=== PATIENT | female | born 1985 | race Caucasian/White ===

== ENCOUNTER 2017-05-06 16:34 | Emergency (ER) | payer MEDICAID ==
--- NOTE | 2017-05-06 17:38 | ED Physician Documentation ---
History of Present Illness - Stated complaint Stated Complaint: BODY PAIN - Chief complaint Chief Complaint: General - History obtained from History obtained from: Patient - History of Present Illness Timing: Other (32-year-old woman with history of pancreatitis and methamphetamine abuse, she has been absent from the emergency department lately , currently maintained on methadone. She has numerous complaints, she feels like her body is swollen and her organs were shutting down. She wonders if she might have shingles, but she does not have a rash. She has been peeing normally. There is a possibility of . She has been tapering her methadone methadone, was at 135 mg, currently at 70 mg a day, that taper took place over 2 months. She admits to methamphetamine abuse, last 2 days ago.) Review of Systems Constitutional: reports: Chills, Myalgias, Fatigue. denies: Fever Throat: reports: Reviewed and negative Cardiac: reports: Reviewed and negative Respiratory: reports: Reviewed and negative PD PAST MEDICAL HISTORY - Past Medical History Past Medical History: Yes Cardiovascular: None Respiratory: Pneumonia Neuro: Other Endocrine/Autoimmune: Other GI: Pancreatitis : None HEENT: None Psych: Anxiety, Panic attacks Musculoskeletal: None Derm: Eczema - Past Surgical History Past Surgical History: Yes General: Cholecystectomy, Other Ortho: Arthroscopic surgery HEENT: Tonsil/Adenoidectomy - Present Medications Home Medications: Ambulatory Orders Medication Instructions Recorded Confirmed Omeprazole 40 mg PO DAILY 09/17/15 05/06/17 QUEtiapine [SEROquel] 100 mg PO QPM #14 tablet 05/06/17 - Allergies Allergies/Adverse Reactions: Allergies Allergy/AdvReac Type Severity Reaction Status Date / Time morphine Allergy Intermediate Itching Verified 05/31/16 17:32 amoxicillin Allergy Itching Verified 05/31/16 17:32 promethazine HCl * Allergy Unknown Verified 05/31/16 17:32 [From Phenergan] - Social History Does the pt smoke?: Yes Smoking Status: Current every day smoker Does the pt drink ETOH?: Yes Does the pt have substance abuse?: Yes - Immunizations Immunizations are current?: Yes - POLST Patient has POLST: No PD ED PE NORMAL - Vitals Vital signs reviewed: Yes - General General: Alert and oriented X 3, No acute distress - HEENT HEENT: PERRL, EOMI, Pharynx benign - Neck Neck: Supple, no meningeal sign, No bony TTP - Cardiac Cardiac: RRR, No murmur - Respiratory Respiratory: No respiratory distress, Clear bilaterally - Abdomen Abdomen: Soft, Non tender - Derm Derm: Normal color, Warm and dry - Extremities Extremities: No edema, No calf tenderness / cord - Neuro Neuro: No motor deficit, No sensory deficit, Normal speech Eye Opening: Spontaneous Motor: Obeys Commands Verbal: Oriented GCS Score: 15 - Psych Psych: Normal mood, Normal affect Results - Vitals Vitals: Vital Signs - 24 hr 05/06/17 05/06/17 05/06/17 16:58 18:07 18:47 Temperature 36.5 C 36.8 C 36.8 C Heart Rate 102 H 93 104 H Respiratory 20 16 18 Rate Blood Pressure 121/85 H 156/103 H 136/86 H O2 Saturation 98 97 97 Oxygen O2 Source Room air - Labs Labs: Laboratory Tests 05/06/17 05/06/17 18:00 18:00 Urine Color YELLOW Urine Clarity HAZY Urine pH 6.0 Ur Specific [place] >=1.030 H Urine Protein NEGATIVE Urine Glucose (UA) NEGATIVE Urine Ketones NEGATIVE Urine Occult Blood MODERATE H Urine Nitrite NEGATIVE Urine Bilirubin NEGATIVE Urine Urobilinogen 0.2 (NORMAL) Ur Leukocyte Esterase NEGATIVE Urine RBC 0-5 Urine WBC 0-3 Ur Squamous Epith Cells MANY Squamous H Urine Bacteria Many H Urine Mucus Marked Strands Ur Microscopic Review INDICATED Urine Culture Comments NOT INDICATED Urine HCG, Qual NEGATIVE Urine Opiates Screen NEGATIVE Ur Oxycodone Screen NEGATIVE Urine Methadone Screen POSITIVE H Ur Propoxyphene Screen NEGATIVE Ur Barbiturates Screen NEGATIVE Ur Tricyclics Screen NEGATIVE Ur Phencyclidine Scrn NEGATIVE Ur Amphetamine Screen POSITIVE H U Methamphetamines Scrn POSITIVE H U Benzodiazepines Scrn NEGATIVE Urine Cocaine Screen NEGATIVE U Cannabinoids Screen NEGATIVE PD MEDICAL DECISION MAKING - ED course ED course: 32-year-old woman with vague nonspecific symptoms not well localizable to any one issue. Her examination was normal. She declined having blood work done, but I suspect most of her issues are related to the methamphetamine abuse. Departure - Departure Disposition: 01 Home, Self Care Clinical Impression: Viral syndrome, Methamphetamine abuse Condition: Good Record reviewed to determine appropriate education?: Yes Follow-Up: [facility] [Provider Group] Prescriptions: QUEtiapine [SEROquel] 100 mg PO QPM #14 tablet Comments: Your blood pressure was elevated today on check into the emergency department. This does not mean that you have hypertension, it is a common phenomenon to come to the emergency department and have elevated blood pressure. I recommend that you see your primary care physician within the week to have it rechecked when you are feeling better. Discharge Date/Time: 05/06/17 18:52
[2017-05-06 18:11] LABS: BILIRUBIN,URINE NEGATIVE (NEGATIVE)
[2017-05-06 18:13] LABS: HCG UR QUAL NEGATIVE; UA w/ MICROSCOPIC CHARGE YES
[2017-05-06 18:34] LABS: UR CULTURE IF IND NOT INDICATED; WBC,URINE 0-3 /HPF (0-5)
[2017-05-06] MEDS ORDERED: QUEtiapine 100 MG TABLET PO STA (18:41)
[2017-05-06 18:48] VITALS: BP 136/86
== END 2017-05-06 18:52 | disposition home or self-care (01) ==
LOC: ED 16:34
DX: B34.9 Viral infection, unspecified (principal); F15.10 Other stimulant abuse, uncomplicated; R03.0 Elevated blood-pressure reading, without diagnosis of hypertension; F17.200 Nicotine dependence, unspecified, uncomplicated; Z86.39 Personal history of other endocrine, nutritional and metabolic disease
CPT/HCPCS: 80306; 81001; 81025; 99283; A9270; 81003; 87086

== ENCOUNTER 2017-08-06 16:42 | Emergency (ER) | payer MEDICAID ==
--- NOTE | 2017-08-06 17:56 | ED Physician Documentation ---
PD HPI NVD - Stated complaint Stated Complaint: NAUSEA/ABD PX/FEVER - Chief complaint Chief Complaint: Abd Pain - History obtained from History obtained from: Patient - History of Present Illness Timing - onset: How many days ago (2-3) Timing - duration: Days (2-3) Timing - details: Gradual onset, Still present Associated symptoms: Abdominal pain, Dizzy. No: Dysuria Contributing factors: Other (she is on quick tapering of methadone over 1 month (was at 45 mg daily and is half way through taper).). No: Sick contact, Bad food, Travel Worsened by: Eating Similar symptoms before: Diagnosis (has had symptoms with withdrawal in the past , but usually not the malaise and as much diarrhea.) Recently seen: Clinic Review of Systems Constitutional: reports: Chills, Myalgias, Fatigue. denies: Fever Nose: denies: Congestion Throat: denies: Sore throat Respiratory: denies: Cough GI: reports: Abdominal Pain, Nausea, Vomiting, Diarrhea. denies: Abdominal Swelling, Bloody / black stool : denies: Dysuria Skin: denies: Rash, Lesions PD PAST MEDICAL HISTORY - Past Medical History Cardiovascular: None Respiratory: Pneumonia Neuro: Other Endocrine/Autoimmune: Other GI: Pancreatitis : None HEENT: None Psych: Anxiety, Panic attacks Musculoskeletal: None Derm: Eczema - Past Surgical History Past Surgical History: Yes General: Cholecystectomy, Other Ortho: Arthroscopic surgery HEENT: Tonsil/Adenoidectomy - Present Medications Home Medications: Ambulatory Orders Medication Instructions Recorded Confirmed Omeprazole 40 mg PO DAILY 09/17/15 05/06/17 QUEtiapine [SEROquel] 100 mg PO QPM #14 tablet 05/06/17 Dicyclomine [Bentyl] 10 mg PO QID PRN #20 capsule 08/06/17 Methadone 30 mg PO 08/06/17 Ondansetron HCl [Zofran] 4 mg PO Q6H PRN #20 tablet 08/06/17 QUEtiapine [SEROquel] 100 mg PO QPM #20 tablet 08/06/17 cloNIDine [Catapres] 0.1 mg PO BID #15 tablet 08/06/17 - Allergies Allergies/Adverse Reactions: Allergies Allergy/AdvReac Type Severity Reaction Status Date / Time amoxicillin Allergy Itching Verified 08/06/17 16:50 promethazine HCl * Allergy Unknown Verified 08/06/17 16:50 [From Phenergan] - Social History Does the pt smoke?: Yes Smoking Status: Current every day smoker Does the pt drink ETOH?: Yes Does the pt have substance abuse?: Yes - Immunizations Immunizations are current?: Yes - POLST Patient has POLST: No PD ED PE NORMAL - Vitals Vital signs reviewed: Yes - General General: Alert and oriented X 3, Well developed/nourished - HEENT HEENT: Pharynx benign - Neck Neck: Supple, no meningeal sign, No adenopathy - Cardiac Cardiac: RRR (tachycardic), No murmur - Respiratory Respiratory: Clear bilaterally - Abdomen Abdomen: Soft, Non tender - Back Back: No CVA TTP - Derm Derm: Normal color, Warm and dry - Neuro Neuro: Alert and oriented X 3, No motor deficit, Normal speech Results - Vitals Vitals: Oxygen O2 Source Room air PD MEDICAL DECISION MAKING - ED course Complexity details: considered differential (could be viral illness and/or methadone withdrawal. ), d/w patient Departure - Departure Disposition: 01 Home, Self Care Clinical Impression: Nausea, Abdominal cramps, Methadone withdrawal Upper respiratory infection Qualifiers: URI type: unspecified URI Qualified Code(s): J06.9 - Acute upper respiratory infection, unspecified Condition: Stable Record reviewed to determine appropriate education?: Yes Prescriptions: cloNIDine [Catapres] 0.1 mg PO BID #15 tablet Dicyclomine [Bentyl] 10 mg PO QID PRN #20 capsule PRN Reason: Spasms Ondansetron HCl [Zofran] 4 mg PO Q6H PRN #20 tablet PRN Reason: Nausea / Vomiting QUEtiapine [SEROquel] 100 mg PO QPM #20 tablet Comments: Drink lots of fluids. Continue the methadone tapering through the clinic. Use ondansetron if needed for nausea. Dicyclomine for abdominal cramps. Clonidine twice a day for the next week or 2 to help her withdrawal. This may also be a viral illness and so we will treat with Decadron for inflammation. Follow-up with your primary care in the next week. Use the Seroquel at night to help with sleep. Discharge Date/Time: 08/06/17 19:35
[2017-08-06] MEDS ORDERED: DICYCLOMINE 10 MG CAPSULE PO STA (18:38)
[2017-08-06] MEDS ORDERED: LORazepam 0.5 MG TABLET PO STA (18:38)
[2017-08-06] MEDS ORDERED: ONDANSETRON ODT 4 MG TABLET TL STA (18:38)
[2017-08-06] MEDS ORDERED: DEXAMETHASONE 10 MG/ML VIAL PO STA (18:39)
[2017-08-06] MEDS ORDERED: cloNIDine 0.1 MG TABLET PO STA (18:39)
[2017-08-06] MEDS ORDERED: QUEtiapine 100 MG TABLET PO STA (18:49)
[2017-08-06 19:39] VITALS: BP 149/110
== END 2017-08-06 19:35 | disposition home or self-care (01) ==
LOC: ED 16:42
DX: R11.0 Nausea (principal); R10.9 Unspecified abdominal pain; F11.23 Opioid dependence with withdrawal; F17.200 Nicotine dependence, unspecified, uncomplicated
CPT/HCPCS: 99283; A9270; Q0162

== ENCOUNTER 2023-01-24 08:04 | Outpatient (CLI) | payer MEDICAID | END 2023-01-24 08:05 | disposition critical access hospital (66) | LOC: EMS 08:04 | DX: Z04.6 Encounter for general psychiatric examination, requested by authority (principal); R41.82 Altered mental status, unspecified; F15.90 Other stimulant use, unspecified, uncomplicated | CPT/HCPCS: A0425; A0429; A0999 ==

== ENCOUNTER 2023-01-24 08:20 | Emergency (ER) | payer MEDICAID ==
[2023-01-24] MEDS ORDERED: OLANZapine 10 MG VIAL IM STA (08:26)
[2023-01-24] MEDS ORDERED: SODIUM CHLORIDE 0.9% 1,000 ML IV STA (08:26)
--- NOTE | 2023-01-24 08:30 | ED Physician Documentation ---
PD HPI MHE - Stated complaint Stated Complaint: GABY/IRRATIC BEHAVIOR - History obtained from History obtained from: Patient, EMS, Police - History of Present Illness Primary symptom: Psychosis (Police were called for patient acting erratically and prior learning through cars and campers. She was speaking nonsensically and had erratic behavior for the police. Suspected substance abuse. She admitted to meth apparently. Brought to the ER under GABY.), Other (enroute the patient complained to medics of left lower abd pain and being .) Contributing factors: Substance abuse - drugs (she does use drugs (Meth) by her self report to police/EMS. Not very coherent history from her though, per EMS.) Recently seen: Not recently seen Review of Systems Unable to obtain: AMS, Confused GI: reports: Abdominal Pain (left lower abd.) PD PAST MEDICAL HISTORY - Past Medical History Cardiovascular: None Respiratory: Pneumonia Endocrine/Autoimmune: Other GI: Pancreatitis : None HEENT: None Psych: Anxiety, Panic attacks Musculoskeletal: None Derm: Eczema - Past Surgical History Past Surgical History: Yes General: Cholecystectomy, Other Ortho: Arthroscopic surgery HEENT: Tonsil/Adenoidectomy - Present Medications Home Medications: Ambulatory Orders Medication Instructions Recorded Confirmed Omeprazole 40 mg PO DAILY 09/17/15 05/06/17 QUEtiapine [SEROquel] 100 mg PO QPM #14 tablet 05/06/17 Dicyclomine [Bentyl] 10 mg PO QID PRN #20 capsule 08/06/17 Methadone [Methadone Hcl] 30 mg PO 08/06/17 QUEtiapine [SEROquel] 100 mg PO QPM #20 tablet 08/06/17 cloNIDine [Catapres] 0.1 mg PO BID #15 tablet 08/06/17 ondansetron HCL [Zofran] 4 mg PO Q6H PRN #20 tablet 08/06/17 - Allergies Allergies/Adverse Reactions: Allergies Allergy/AdvReac Type Severity Reaction Status Date / Time amoxicillin Allergy Itching Verified 08/06/17 16:50 promethazine HCl * Allergy Unknown Verified 08/06/17 16:50 [From Phenergan] - Social History Does the pt smoke?: Yes Smoking Status: Current every day smoker Does the pt drink ETOH?: Yes Does the pt have substance abuse?: Yes - Immunizations Immunizations are current?: Yes - POLST Patient has POLST: No PD ED PE NORMAL - Vitals Vital signs reviewed: Yes - General General: Well developed/nourished, Other (confused and anxious. Wide eyed and seems confounded by activity around her. ) - HEENT HEENT: Atraumatic - Neck Neck: Supple, no meningeal sign, No adenopathy - Cardiac Cardiac: No: RRR (tachycardic but regular) - Respiratory Respiratory: No respiratory distress, Clear bilaterally - Abdomen Abdomen: Normal bowel sounds, Soft, Non distended, Other (tender without guarding left lower abd. ) - Female Female : Deferred - Rectal Rectal: Deferred - Back Back: No CVA TTP - Derm Derm: Normal color, Warm and dry Results - Vitals Vitals: Vital Signs - 24 hr 01/24/23 01/24/23 01/24/23 08:23 09:40 16:05 Temperature 36.4 C L 36.7 C Heart Rate 120 H 85 77 Respiratory 22 15 16 Rate Blood Pressure 185/122 H 136/87 H 148/95 H O2 Saturation 94 95 98 Oxygen O2 Source Room air - Labs Labs: Laboratory Tests 01/24/23 01/24/23 01/24/23 09:41 09:41 09:41 WBC 8.3 RBC 4.85 Hgb 13.7 Hct 40.7 MCV 83.9 MCH 28.2 MCHC 33.7 RDW 12.9 Plt Count 236 MPV 9.4 Neut # (Auto) 5.4 Lymph # (Auto) 2.2 Jewell # (Auto) 0.6 Eos # (Auto) 0.1 Baso # (Auto) 0.0 Absolute Nucleated RBC 0.00 Nucleated RBC % 0.0 Sodium 137 Potassium 3.2 L Chloride 105 Carbon Dioxide 26 Anion Gap 6.0 BUN 12 Creatinine 0.7 Estimated GFR (MDRD) 94 Glucose 146 H Calcium 9.4 Total Bilirubin 0.4 AST 19 ALT 13 Alkaline Phosphatase 59 Total Protein 6.7 Albumin 4.1 Globulin 2.6 Albumin/Globulin Ratio 1.6 Lipase 9 L TSH 0.62 Serum HCG, Qual NEGATIVE Urine Color Urine Clarity Urine pH Ur Specific [place] Urine Protein Urine Glucose (UA) Urine Ketones Urine Occult Blood Urine Nitrite Urine Bilirubin Urine Urobilinogen Ur Leukocyte Esterase Ur Microscopic Review Urine Culture Comments Salicylates < 1.5 Urine Opiates Screen Ur Oxycodone Screen Urine Methadone Screen Ur Propoxyphene Screen Acetaminophen 0.4 Ur Barbiturates Screen Ur Tricyclics Screen Ur Phencyclidine Scrn Ur Amphetamine Screen U Methamphetamines Scrn U Benzodiazepines Scrn Urine Cocaine Screen U Cannabinoids Screen Ethyl Alcohol < 10.0 01/24/23 16:45 WBC RBC Hgb Hct MCV MCH MCHC RDW Plt Count MPV Neut # (Auto) Lymph # (Auto) [place] # (Auto) Eos # (Auto) Baso # (Auto) Absolute Nucleated RBC Nucleated RBC % Sodium Potassium Chloride Carbon Dioxide Anion Gap BUN Creatinine Estimated GFR (MDRD) Glucose Calcium Total Bilirubin AST ALT Alkaline Phosphatase Total Protein Albumin Globulin Albumin/Globulin Ratio Lipase TSH Serum HCG, Qual Urine Color YELLOW Urine Clarity CLEAR Urine pH 5.5 Ur Specific [place] 1.025 Urine Protein NEGATIVE Urine Glucose (UA) NEGATIVE Urine Ketones NEGATIVE Urine Occult Blood NEGATIVE Urine Nitrite NEGATIVE Urine Bilirubin NEGATIVE Urine Urobilinogen 0.2 (NORMAL) Ur Leukocyte Esterase NEGATIVE Ur Microscopic Review NOT INDICATED Urine Culture Comments NOT INDICATED Salicylates Urine Opiates Screen NEGATIVE Ur Oxycodone Screen NEGATIVE Urine Methadone Screen NEGATIVE Ur Propoxyphene Screen NEGATIVE Acetaminophen Ur Barbiturates Screen NEGATIVE Ur Tricyclics Screen NEGATIVE Ur Phencyclidine Scrn NEGATIVE Ur Amphetamine Screen POSITIVE H U Methamphetamines Scrn POSITIVE H U Benzodiazepines Scrn NEGATIVE Urine Cocaine Screen NEGATIVE U Cannabinoids Screen NEGATIVE Ethyl Alcohol PD Medical Decision Making - ED course Complexity details: considered differential, d/w patient ED course: Patient brought by EMS under GABY by the [place] PD because of erratic behavior and breaking into peoples houses or campers. No threatening behaviors per se. No suicidal statements. She seems to be not comprehending direction well. En route she was complaining of left lower abdominal pain to EMS assess. No vomiting. No injury. Here on presentation in the ER she is very anxious. She admits to meth use. I asked her if she would like some medication to help relax and she was in agreement. I offered an injection of medication to which she agreed. She is very anxious about activities around her and I think this will be helpful. Subsequently then we can start an IV and get labs and urine. She has left lower quadrant abdominal tenderness. We want to better evaluate that. The patient did relax and become tired after the initial medications. She was also given Toradol IV once and IV was established. She seemed to be minimally tender in her abdomen at that time. She was still reactive to tactile and verbal stimulus so deferred ultrasound for now. She did not seem to have an acute abdomen where some delay would be inappropriate. Slept for several hours. Subsequently she was more conversant though still some slow in processing decisions. Social work noted this in her indecisiveness of wanting detox versus a ride home. Social work is in on the fence of whether the patient will would be detainable for disability. No known psychiatric history but seems substance abuse or substance induced psychosis. The patient is getting little anxious at this point and we can give some Ativan if she would like. I will asked the patient. Social work is going to consult the DCR and get their opinion on the patient. So for now we would not allow the patient to leave until this is better delineated. Still getting urine for tox though expect positive for methamphetamines. DCR to be dispatched to talk with patient. Care to Dr. Rodriguez at change of shift time. Departure - Departure Clinical Impression: Altered mental status, Substance abuse, Left lower quadrant abdominal pain Condition: Stable Record reviewed to determine appropriate education?: Yes
[2023-01-24 09:48] LABS: BASOPHILS % (AUTO) 0.4 %; EOSINOPHILS # (AUTO) 0.1 10^3/uL (0.0-0.7); EOSINOPHILS % (AUTO) 1.1 %; HCT - HEMATOCRIT 40.7 % (37.0-47.0); HGB - HEMOGLOBIN 13.7 g/dL (12.0-16.0); LYMPHOCYTES # (AUTO) 2.2 10^3/uL (1.5-3.5); LYMPHOCYTES % (AUTO) 25.9 %; MEAN CORPUSCULAR HEMOGLOBIN 28.2 pg (27.0-31.0); MEAN CORPUSCULAR HGB CONC 33.7 g/dL (32.0-36.0); MEAN CORPUSCULAR VOLUME 83.9 fL (81.0-99.0); MEAN PLATELET VOLUME 9.4 fL (7.9-10.8); MONOCYTES # (AUTO) 0.6 10^3/uL (0.0-1.0); NEUTROPHILS # (AUTO) 5.4 10^3/uL (1.5-6.6); NEUTROPHILS % (AUTO) 65.5 %; PLT - PLATELET COUNT 236 10^3/uL (130-450); RED BLOOD COUNT 4.85 10^6/uL (4.20-5.40); RED CELL DISTRIBUTION WIDTH 12.9 % (12.0-15.0); WHITE BLOOD COUNT 8.3 x10^3/uL (4.8-10.8)
[2023-01-24 09:59] LABS: ACETAMINOPHEN 0.4 ug/mL; ALBUMIN 4.1 g/dL (3.2-5.5); ALBUMIN/GLOBULIN RATIO 1.6 (1.0-2.2); ALKALINE PHOSPHATASE 59 IU/L (42-121); ALT ALANINE AMINOTRANSFERASE 13 IU/L (10-60); AST ASPARTATE AMINOTRANSFERASE 19 IU/L (10-42); BILIRUBIN,TOTAL 0.4 mg/dL (0.2-1.0); BUN - BLOOD UREA NITROGEN 12 mg/dL (6-20); CALCIUM 9.4 mg/dL (8.5-10.3); CARBON DIOXIDE - CO2 26 mmol/L (21-32); CHLORIDE 105 mmol/L (101-111); CREATININE 0.7 mg/dL (0.6-1.3); ETOH - ETHANOL < 10.0 mg/dL; GFR - MDRD 94 (>89); GLUCOSE 146 mg/dL (74-104); POTASSIUM 3.2 mmol/L (3.5-4.5); SODIUM 137 mmol/L (135-145); TOTAL PROTEIN 6.7 g/dL (6.4-8.9)
[2023-01-24 10:02] LABS: LIPASE 9 U/L (11-82)
[2023-01-24 10:03] LABS: SALICYLATE < 1.5 mg/dL
[2023-01-24 10:10] LABS: HCG,QUALITATIVE BLOOD NEGATIVE
[2023-01-24 10:14] LABS: THYROID STIMULATING HORMONE 0.62 uIU/mL (0.34-5.60)
[2023-01-24] MEDS ORDERED: KETOROLAC 15 MG/ML VIAL IVP STA (10:41)
[2023-01-24] MEDS ORDERED: LORazepam 2 MG/ML VIAL IVP STA (15:07)
[2023-01-24 16:11] VITALS: O2SAT 98
[2023-01-24 16:50] LABS: MUDS CUTOFF CONCENTRATIONS CUTOFF CONC BELOW:
[2023-01-24 16:58] LABS: BILIRUBIN,URINE NEGATIVE (NEGATIVE); GLUCOSE, URINE (UA) NEGATIVE (NEGATIVE); KETONES,URINE (UA) NEGATIVE (NEGATIVE); LEUKOCYTE ESTERASE, URINE NEGATIVE (NEGATIVE); NITRITE,URINE NEGATIVE (NEGATIVE); OCCULT BLOOD,URINE NEGATIVE (NEGATIVE); PH,URINE 5.5 PH (5.0-7.5); PROTEIN,URINE NEGATIVE (NEGATIVE); UROBILINOGEN,URINE 0.2 (NORMAL) E.U./dL (NORMAL)
[2023-01-24 17:01] LABS: CLARITY,URINE CLEAR (CLEAR)
--- NOTE | 2023-01-24 17:07 | Ultrasound Report ---
PROCEDURE: Pelvic w/Doppler Complete INDICATIONS: left lower abd/pelvic pain x days TECHNIQUE: Real-time transabdominal scanning was performed of the pelvic organs, with image documentation. COMPARISON: None FINDINGS: Uterus: Uterus is anteverted and normal in size at 9.9 x 3.7 x 4.5 cm. The myometrium is homogeneou s. The endometrium measures 0.9 mm in combined thickness. Trace fluid in the endometrium is nonspec ific. Ovaries: The right ovary measures 3.0 x 2.3 x 2.1 cm, with a calculated ovarian volume of 7.7 cc. T he left ovary measures 3.0 x 2.0 x 2.6 cm, with a calculated ovarian volume of 8.0 cc. The ovaries h ave a normal sonographic appearance. Less than 12 follicles can be seen in each ovary. No adnexal m asses are seen. No cystic lesions measuring greater than 3 cm. Other: No free pelvic fluid. IMPRESSION: Normal pelvic ultrasound. Reviewed by: Scottie Carver on 01/24/2023 5:06 PM PDT Approved by: Scottie Carver on 01/24/2023 5:06 PM PDT Station ID: [id number]
[2023-01-24 17:10] LABS: AMPHETAMINE SCREEN,URINE POSITIVE (NEGATIVE); BARBITURATE SCREEN,UR NEGATIVE (NEGATIVE); BENZODIAZEPINES SCREEN, URINE NEGATIVE (NEGATIVE); COCAINE SCREEN URINE NEGATIVE (NEGATIVE); METHADONE SCREEN, URINE NEGATIVE (NEGATIVE); METHAMPHETAMINES SCREEN, URINE POSITIVE (NEGATIVE); OPIATE SCREEN, URINE NEGATIVE (NEGATIVE); OXYCODONE SCREEN, URINE NEGATIVE (NEGATIVE); PROPOXYPHENE SCREEN, URINE NEGATIVE (NEGATIVE); THC CANNABINOID SCREEN, URINE NEGATIVE (NEGATIVE); TRICYCLIC ANTIDEPRESSANT,URINE NEGATIVE (NEGATIVE)
--- NOTE | 2023-01-24 17:31 | ED Physician Documentation ---
ED Addendum - Addendum Addendum: 01/24/23 17:[address] Loera at 5 PM shift change. Patient quite somnolent and DCR tried to evaluate her but she was too somnolent to do so and request we redispatch when patient is more awake. 01/24/23 21:01 Patient more coherent now. DCR dispatched again. Care to overnight ED physician at shift change pending DCR evaluation.
[2023-01-24] MEDS ORDERED: ACETAMINOPHEN 500 MG TABLET PO STA (21:30)
--- NOTE | 2023-01-24 22:47 | ED Physician Documentation ---
ED Addendum - Addendum Addendum: 01/24/23 22:46 Patient has been evaluated by DCR. Patient's episodes and behavior believed to be substance induced, particularly from amphetamines. Patient was counseled on the importance of avoiding psychoactive substances such as amphetamines and referred to rehab and detox resources. Patient does not meet any criteria for involuntary detainment. She will be discharged with appropriate follow-up resources.
[2023-01-24 23:02] VITALS: BP 151/107
== END 2023-01-24 23:01 | disposition home or self-care (01) ==
LOC: EDUNIT# → ED 08:20
DX: R10.2 Pelvic and perineal pain (principal); R41.82 Altered mental status, unspecified; F19.10 Other psychoactive substance abuse, uncomplicated; F17.200 Nicotine dependence, unspecified, uncomplicated; Z20.822 Contact with and (suspected) exposure to COVID-19
CPT/HCPCS: 36415; 76856; 80053; 80306; 80307; 80320; 80329; 81003; 83690; 84443; 84703; 85025; 87635; 93975; 96361; 96372; 96374; 96375; 99284; A9270; J2060; 81001; 87086

== ENCOUNTER 2023-02-13 10:12 | Outpatient (CLI) | payer MEDICAID | END 2023-02-13 10:13 | disposition critical access hospital (66) | LOC: EMS 10:12 | DX: R44.3 Hallucinations, unspecified (principal); F11.90 Opioid use, unspecified, uncomplicated | CPT/HCPCS: A0425; A0429; A0999 ==

== ENCOUNTER 2023-02-13 10:31 | Emergency (ER) | payer MEDICAID ==
--- NOTE | 2023-02-13 10:49 | ED Physician Documentation ---
PD HPI MHE - Stated complaint Stated Complaint: MHE - History obtained from History obtained from: EMS - Additional information Additional information: Patient is a 37-year-old female with a history of methamphetamine and fentanyl use presenting for evaluation of of visual hallucinations. Patient believes that she is seeing people. She states that she took a blue pill 1 hour ago which EMS states is fentanyl. She is asking for more fentanyl. She also reports that people are trying to get her and they are trying to cut her open and try and get to her babies. She was seen here earlier this month and was evaluated by the DCR. Ultimately she was allowed to be discharged as it was felt her symptoms were likely related to drug abuse. Review of Systems Constitutional: denies: Fever Cardiac: denies: Chest pain / pressure Respiratory: denies: Dyspnea GI: denies: Abdominal Pain PD PAST MEDICAL HISTORY - Past Medical History Cardiovascular: None Respiratory: Pneumonia Endocrine/Autoimmune: Other GI: Pancreatitis : None HEENT: None Psych: Anxiety, Panic attacks Musculoskeletal: None Derm: Eczema - Past Surgical History Past Surgical History: Yes General: Cholecystectomy, Other Ortho: Arthroscopic surgery HEENT: Tonsil/Adenoidectomy - Present Medications Home Medications: Ambulatory Orders Medication Instructions Recorded Confirmed Omeprazole 40 mg PO DAILY 09/17/15 05/06/17 QUEtiapine [SEROquel] 100 mg PO QPM #14 tablet 05/06/17 Dicyclomine [Bentyl] 10 mg PO QID PRN #20 capsule 08/06/17 Methadone [Methadone Hcl] 30 mg PO 08/06/17 QUEtiapine [SEROquel] 100 mg PO QPM #20 tablet 08/06/17 cloNIDine [Catapres] 0.1 mg PO BID #15 tablet 08/06/17 ondansetron HCL [Zofran] 4 mg PO Q6H PRN #20 tablet 08/06/17 Naloxone HCl Nasal [Narcan Nasal] 4 mg NS ONCE PRN #2 kit 01/24/23 - Allergies Allergies/Adverse Reactions: Allergies Allergy/AdvReac Type Severity Reaction Status Date / Time amoxicillin Allergy Itching Verified 08/06/17 16:50 promethazine HCl * Allergy Unknown Verified 08/06/17 16:50 [From Phenergan] - Social History Does the pt smoke?: Yes Smoking Status: Current every day smoker Does the pt drink ETOH?: Yes Does the pt have substance abuse?: Yes - Immunizations Immunizations are current?: Yes - POLST Patient has POLST: No PD ED PE NORMAL - General General: Alert and oriented X 3, No acute distress, Well developed/nourished - HEENT HEENT: Atraumatic - Neck Neck: Supple, no meningeal sign - Cardiac Cardiac: RRR, No murmur - Respiratory Respiratory: No respiratory distress, Clear bilaterally - Abdomen Abdomen: Soft, Non tender - Derm Derm: Warm and dry - Neuro Neuro: Alert and oriented X 3, No motor deficit, Normal speech - Psych Psych: Other (Labile mood) Results - Vitals Vitals: Vital Signs - 24 hr 02/13/23 02/13/23 10:49 10:54 Temperature 37.0 C Heart Rate 111 H Respiratory 19 Rate Blood Pressure 155/106 H O2 Saturation 89 L 92 If not protocol 2 : Oxygen Flow, liters/minute Oxygen O2 Source Nasal cannula - Labs Labs: Laboratory Tests 02/13/23 02/13/23 02/13/23 10:47 10:47 11:00 WBC 8.2 RBC 5.24 Hgb 15.0 Hct 44.7 MCV 85.3 MCH 28.6 MCHC 33.6 RDW 12.9 Plt Count 274 MPV 9.5 Neut # (Auto) 5.9 Lymph # (Auto) 1.7 [place] # (Auto) 0.4 Eos # (Auto) 0.1 Baso # (Auto) 0.0 Absolute Nucleated RBC 0.00 Nucleated RBC % 0.0 Sodium 139 Potassium 3.4 L Chloride 104 Carbon Dioxide 26 Anion Gap 9.0 BUN 14 Creatinine 1.0 Estimated GFR (MDRD) 62 L Glucose 236 H Calcium 9.8 Magnesium 1.7 Total Bilirubin 0.4 AST 13 ALT 12 Alkaline Phosphatase 73 Total Protein 7.1 Albumin 4.3 Globulin 2.8 Albumin/Globulin Ratio 1.5 Lipase 16 TSH 0.81 Urine Color Urine Clarity Urine pH Ur Specific [place] Urine Protein Urine Glucose (UA) Urine Ketones Urine Occult Blood Urine Nitrite Urine Bilirubin Urine Urobilinogen Ur Leukocyte Esterase Urine RBC Urine WBC Ur Squamous Epith Cells Amorphous Sediment Urine Bacteria Ur Microscopic Review Urine Culture Comments Urine HCG, Qual Salicylates 3.3 Urine Opiates Screen Ur Oxycodone Screen Urine Methadone Screen Ur Propoxyphene Screen Acetaminophen 5.6 Ur Barbiturates Screen Ur Tricyclics Screen Ur Phencyclidine Scrn Ur Amphetamine Screen U Methamphetamines Scrn U Benzodiazepines Scrn Urine Cocaine Screen U Cannabinoids Screen Ethyl Alcohol < 10.0 SARS-CoV-2 (PCR) NOT DETECTED 02/13/23 14:00 WBC RBC Hgb Hct MCV MCH MCHC RDW Plt Count MPV Neut # (Auto) Lymph # (Auto) [place] # (Auto) Eos # (Auto) Baso # (Auto) Absolute Nucleated RBC Nucleated RBC % Sodium Potassium Chloride Carbon Dioxide Anion Gap BUN Creatinine Estimated GFR (MDRD) Glucose Calcium Magnesium Total Bilirubin AST ALT Alkaline Phosphatase Total Protein Albumin Globulin Albumin/Globulin Ratio Lipase TSH Urine Color YELLOW Urine Clarity SL. CLOUDY Urine pH 7.0 Ur Specific [place] 1.020 Urine Protein TRACE Urine Glucose (UA) NEGATIVE Urine Ketones NEGATIVE Urine Occult Blood NEGATIVE Urine Nitrite NEGATIVE Urine Bilirubin NEGATIVE Urine Urobilinogen 1 (NORMAL) Ur Leukocyte Esterase NEGATIVE Urine RBC 0-5 Urine WBC 0-3 Ur Squamous Epith Cells FEW Squamous Amorphous Sediment Moderate Urine Bacteria Few Ur Microscopic Review INDICATED Urine Culture Comments NOT INDICATED Urine HCG, Qual NEGATIVE Salicylates Urine Opiates Screen NEGATIVE Ur Oxycodone Screen NEGATIVE Urine Methadone Screen NEGATIVE Ur Propoxyphene Screen NEGATIVE Acetaminophen Ur Barbiturates Screen NEGATIVE Ur Tricyclics Screen NEGATIVE Ur Phencyclidine Scrn NEGATIVE Ur Amphetamine Screen NEGATIVE U Methamphetamines Scrn NEGATIVE U Benzodiazepines Scrn NEGATIVE Urine Cocaine Screen NEGATIVE U Cannabinoids Screen NEGATIVE Ethyl Alcohol SARS-CoV-2 (PCR) PD Medical Decision Making - ED course ED course: Patient is a 37-year-old female with a history of methamphetamine and fentanyl abuse presenting for hallucinations and paranoid thoughts. Screening labs were ordered and reviewed and without significant findings. Social work consult has been ordered. Patient was given a dose of Zyprexa for anxiety and psychiatric symptoms. This was not used as a chemical restraint. Pt signed out At shift change pending social work evaluation. Departure - Departure Clinical Impression: Psychiatric symptoms
[2023-02-13 10:52] LABS: BASOPHILS % (AUTO) 0.5 %; EOSINOPHILS # (AUTO) 0.1 10^3/uL (0.0-0.7); EOSINOPHILS % (AUTO) 1.7 %; HCT - HEMATOCRIT 44.7 % (37.0-47.0); LYMPHOCYTES # (AUTO) 1.7 10^3/uL (1.5-3.5); LYMPHOCYTES % (AUTO) 20.3 %; MEAN CORPUSCULAR HEMOGLOBIN 28.6 pg (27.0-31.0); MEAN CORPUSCULAR HGB CONC 33.6 g/dL (32.0-36.0); MEAN CORPUSCULAR VOLUME 85.3 fL (81.0-99.0); MEAN PLATELET VOLUME 9.5 fL (7.9-10.8); MONOCYTES # (AUTO) 0.4 10^3/uL (0.0-1.0); MONOCYTES % (AUTO) 5.3 %; NEUTROPHILS # (AUTO) 5.9 10^3/uL (1.5-6.6); NEUTROPHILS % (AUTO) 72.1 %; PLT - PLATELET COUNT 274 10^3/uL (130-450); RED BLOOD COUNT 5.24 10^6/uL (4.20-5.40); RED CELL DISTRIBUTION WIDTH 12.9 % (12.0-15.0); WHITE BLOOD COUNT 8.2 x10^3/uL (4.8-10.8)
[2023-02-13 11:05] LABS: ACETAMINOPHEN 5.6 ug/mL; ALBUMIN 4.3 g/dL (3.2-5.5); ALBUMIN/GLOBULIN RATIO 1.5 (1.0-2.2); ALKALINE PHOSPHATASE 73 IU/L (42-121); ALT ALANINE AMINOTRANSFERASE 12 IU/L (10-60); AST ASPARTATE AMINOTRANSFERASE 13 IU/L (10-42); BILIRUBIN,TOTAL 0.4 mg/dL (0.2-1.0); BUN - BLOOD UREA NITROGEN 14 mg/dL (6-20); CALCIUM 9.8 mg/dL (8.5-10.3); CARBON DIOXIDE - CO2 26 mmol/L (21-32); CHLORIDE 104 mmol/L (101-111); ETOH - ETHANOL < 10.0 mg/dL; GFR - MDRD 62 (>89); GLUCOSE 236 mg/dL (74-104); LIPASE 16 U/L (11-82); MAGNESIUM 1.7 mg/dL (1.7-2.3); POTASSIUM 3.4 mmol/L (3.5-4.5); SALICYLATE 3.3 mg/dL; SODIUM 139 mmol/L (135-145); TOTAL PROTEIN 7.1 g/dL (6.4-8.9)
[2023-02-13 11:19] LABS: THYROID STIMULATING HORMONE 0.81 uIU/mL (0.34-5.60)
[2023-02-13] MEDS ORDERED: OLANZapine ODT 5 MG TABLET TL ONE (13:34)
[2023-02-13 14:14] LABS: MUDS CUTOFF CONCENTRATIONS CUTOFF CONC BELOW:
[2023-02-13 14:22] LABS: GLUCOSE, URINE (UA) NEGATIVE (NEGATIVE); KETONES,URINE (UA) NEGATIVE (NEGATIVE); LEUKOCYTE ESTERASE, URINE NEGATIVE (NEGATIVE); NITRITE,URINE NEGATIVE (NEGATIVE); OCCULT BLOOD,URINE NEGATIVE (NEGATIVE); PROTEIN,URINE TRACE mg/dL (NEGATIVE); UROBILINOGEN,URINE 1 (NORMAL) E.U./dL (NORMAL)
[2023-02-13 14:31] LABS: BILIRUBIN,URINE NEGATIVE (NEGATIVE); CLARITY,URINE SL. CLOUDY (CLEAR); HCG UR QUAL NEGATIVE; ICTOTEST,URINE NEGATIVE
[2023-02-13 14:32] LABS: AMPHETAMINE SCREEN,URINE NEGATIVE (NEGATIVE); BARBITURATE SCREEN,UR NEGATIVE (NEGATIVE); BENZODIAZEPINES SCREEN, URINE NEGATIVE (NEGATIVE); COCAINE SCREEN URINE NEGATIVE (NEGATIVE); METHADONE SCREEN, URINE NEGATIVE (NEGATIVE); METHAMPHETAMINES SCREEN, URINE NEGATIVE (NEGATIVE); OPIATE SCREEN, URINE NEGATIVE (NEGATIVE); OXYCODONE SCREEN, URINE NEGATIVE (NEGATIVE); PROPOXYPHENE SCREEN, URINE NEGATIVE (NEGATIVE); THC CANNABINOID SCREEN, URINE NEGATIVE (NEGATIVE); TRICYCLIC ANTIDEPRESSANT,URINE NEGATIVE (NEGATIVE)
[2023-02-13 14:40] LABS: AMORPHOUS SEDIMENT,UR Moderate /LPF; BACTERIA,URINE Few /HPF (None Seen); RBC,URINE 0-5 /HPF (0-5); SQUAMOUS EPITHELIAL CELL,UR FEW Squamous (<= Few); WBC,URINE 0-3 /HPF (0-5)
--- NOTE | 2023-02-13 22:33 | TELEPSYCH PHYS NOTE ---
Telepsych Consultation Note Consult: Name: WENDY ENGLISHOB: 1985 DateandTime: 02/14/2023 1:16:26 AM [facility] Rad[facility] Length of consult: 1 hour This evaluation was conducted via video telepsychiatry with the assistance of onsite staff Reason for consult: psychosis Requested by: KEN BRODERICK History of Present Illness: Provider/nurse contacted: LAQUITA Tierney Dr. Daily Psych consulted for: psychosis Chief complaint: I dont know why I am here. Psych Consult HPI: Pt is a 37yo F with a past psych hx of meth and fentanyl use d/o who presents for psychosis, SI, HI. Pt is in the hospital for reportedly having VH seeing people and feeling paranoid people are trying to get her trying to cut her open and try and get to her babies. Pt was found chasing someone with a knife saying she was going to kill them and kill herself. Pt last took fentanyl today. Pt is also drug seeking in the hospital. Stressors include substance abuse. Pt has past psych hospitalizations and prior SAs. Pt admits to fentanyl, meth use daily. Pt has been off meds for unknown amount of time. During interview, Pt was guarded, uncooperative, paranoid. Collateral Contacted: Shanita for not contacting the collateral:None available Sleep issues?: No Psychiatric History/Treatment History: Past diagnoses: meth and fentanyl use d/o, anxiety, panic attacks Hospitalizations: YesDescription: Current Treatment:YesMedication management:NoTherapy: Suicide Assessment: PSS-3: 1) Over the past 2 weeks have you felt down, depressed or hopeless?No 2) Over the past 2 weeks have you had thoughts of killing yourself?No 3) Have you ever in your life attempted to kill yourself?No Within the past 6 months? [facility]: Risk Factors Stressors: substance abuse Attempts/Self-injury: No Impulsivity:No Drug/Alcohol History:YesDescription: Trauma History:No Access to firearms:No HI/Violence/Property destruction:No Legal: No Family Psych History:YesDescription:Pt does not know who Family History of suicide:No Protective Factors: Can handle stress well?No Gnosticism?Unknown-NA External: Social supports/ Therapeutic relationships: YesDescription: Relationship history: single Living situation: lives with boyfriend Employment: No Education: GED Responsibility to family/children/work: YesDescription: Future orientation:YesDescription: Health History: Medical History: meth and fentanyl use d/o Medications & Freq: Omeprazole 40 mg PO DAILY 09/17/15 05/06/17 QUEtiapine [SEROquel] 100 mg PO QPM #14 tablet 05/06/17 Dicyclomine [Bentyl] 10 mg PO QID PRN #20 capsule 08/06/17 Methadone [Methadone Hcl] 30 mg PO 08/06/17 QUEtiapine [SEROquel] 100 mg PO QPM #20 tablet 08/06/17 cloNIDine [Catapres] 0.1 mg PO BID #15 tablet 08/06/17 ondansetron HCL [Zofran] 4 mg PO Q6H PRN #20 tablet 08/06/17 Naloxone HCl Nasal [Narcan Nasal] 4 mg NS ONCE PRN #2 kit 01/24/23 Allergies: amoxicillin Allergy Itching Verified 08/06/17 16:50 promethazine HCl * Allergy Unknown Verified 08/06/17 16:50 [From Phenergan] Mental Status Exam: Appearance and Attire: Psychomotor agitation:Psychomotor retardation Attitude and behavior:Guarded Speech:Soft Mood:Anxious Affect:Flat, Not constricted Thought process:Not linear, Incoherent, Tangential Thought content:Suicidal ideation, Homicidal ideation, Paranoia, Delusions Perception:denies Intel:Average Abstract:Appropriate Language:No abnormality Orientation:Oriented x 4 Sense:Normal Knowledge:Appropriate for education and socioeconomic status Memory:Intact Insight:Moderate impairment Judgement:Moderate impairment Gait:No abnormality Impression/Risk Assessment: Current Suicide Risk Elevated?No Current Violence Risk Elevated?Yes Issues with ability to care for self?No Summary: Clinical impression: Psychosis NOS r/o substance induced psychosis Current Suicide Risk: moderate Current Violence Risk: moderate Risk Assessment: Pt is at high risk for harm to self and others. Primary problems are SI, HI, psychosis, paranoid delusions Pt is a 37yo F with a past psych hx of meth and fentanyl use d/o who presents for psychosis, SI, HI. Due to Pts impairment and poor coping strategies, they are likely a danger to themselves and others. Therefore, I recommend involuntary hospitalization to prevent harm to self and others. Pt meets criteria for inpatient psych admission. This is mostly likely substance induced and a reevaluation maybe warranted as Pt comes out of her intoxicated state. - Recommendations 1. Inpatient psychiatric admission once medically clear. Patient meets criteria for involuntary commitment. 2. Patient should not be allowed to sign AMA. 3. Please consult psychiatry in 24 to 48 hours for reevaluation if considered appropriate. 4. Medications: Zyprexa 5mg BID for mood/psychosis 5. Consider: Comfort meds: Trazodone 50mg QHS PRN for insomnia Vistaril 50mg TID PRN for anxiety Zyprexa 5mg Q6 PRN for mild/moderate agitation In the case of severe aggression, Emergency medication may be given as a now dose: 1. Haldol 5mg IM 2. Ativan 2mg IM 3. Benadryl 50mg IM Patient was started on meds today. I have discussed the risks, benefits, side effects, and alternative therapies to this medication with the patient and or legal patient intake representative. The patient and/or legal patient intake representative agree to proceed with medication therapy. Discussed with provider on duty Thank you for this consult. This note serves as a written report of findings/ recommendations and has been made available to the requesting provider. Diagnosis: F29 Unspecified psychosis not due to a substance or known physiological condition CPT Codes: 38388 - Psychiatric Diagnostic Evaluation with Medical Services Treatment Plan: General: Level of Care: inpatient psych, involuntary psych hold Psychiatric Clearance: No Observation level 1:1 needed?: No Pharmacological: Zyprexa 5mg BID for mood/psychosis Patient psychotic?YesWas a standing psychotic ordered?Description: Therapy: Follow up needed while in the hospital?: YesNumber of times: Discussed plan with onsite steam gigger: Yes Who Dr. Leann Velázquez Other: List names and roles of persons who participated in consult: Dr. Leann Velázquez
[2023-02-13] MEDS ORDERED: OLANZapine ODT 5 MG TABLET TL SCH (23:00)
--- NOTE | 2023-02-13 23:00 | ED Physician Documentation ---
ED Addendum - Addendum Addendum: 02/13/23 22:59 The patient was signed out to me at change of shift, pending social work evaluation after presenting to the emergency department with paranoid delusions. Family had called in and reported that the patient was also brandishing a knife and threatening family members. Patient has history of methamphetamine use and admits to this, but drug screen was negative today. The patient was evaluated by social work assistant who felt the patient needed to be detained and telepsych con sult was obtained. Psychiatrist felt the patient should be detained involuntarily and so [facility] has been consulted.'s pending at this time. The patient is signed out to the oncoming emergency physician, pending DCR evaluation and ultimately, inpatient psychiatric admission.
[2023-02-14 11:00] VITALS: BP 143/100; O2SAT 96
== END 2023-02-13 23:53 | disposition left against medical advice (07) ==
LOC: EDBD → EDUNIT# → ED 10:31
DX: R44.1 Visual hallucinations (principal); F17.200 Nicotine dependence, unspecified, uncomplicated; Z20.822 Contact with and (suspected) exposure to COVID-19; Z79.899 Other long term (current) drug therapy
CPT/HCPCS: 36415; 80053; 80306; 80307; 80320; 80329; 81001; 81025; 83690; 83735; 84443; 85025; 87635; 90834; 99283; 99284; A9270; Q3014; 81003; 82550; 87086

== ENCOUNTER 2023-02-20 20:01 | Outpatient (CLI) | payer MEDICAID | END 2023-02-20 23:59 | disposition critical access hospital (66) | LOC: EMS 20:01 | DX: Z04.6 Encounter for general psychiatric examination, requested by authority (principal); R40.0 Somnolence | CPT/HCPCS: A0425; A0429; A0999 ==

== ENCOUNTER 2023-02-20 20:18 | Emergency (ER) | payer MEDICAID ==
--- NOTE | 2023-02-20 20:23 | ED Physician Documentation ---
History of Present Illness - Stated complaint Stated Complaint: GABY/MHE - History obtained from History obtained from: EMS - Additonal information Additional information: 37yF with history of meth and fentanyl abuse, recent psychiatric evaluation a week ago with elopement from the ED after attempting to assault ED staff, p/w decreased responsiveness tonight. police and ems were called to [employer] parking lot where patient was "wandering around". On scene, patient sat on a chair and became somnolent, having trouble keeping Her eyes open and refusing to speak with police. EMS ascertained that she was breathing normally and had O2 sat 96% room air, normal fingerstick glucose however she refused to interact. When they attempted an IV she began speaking loudly and said she did not want the iv, then returned to her somnolent state. In the ED patient is protecting her airway, opening her eyes to verbal cues, but is intoxicated appearing. history limited by AMS Review of Systems Unable to obtain: Intoxicated PD PAST MEDICAL HISTORY - Past Medical History Cardiovascular: None Respiratory: Pneumonia Endocrine/Autoimmune: Other GI: Pancreatitis : None HEENT: None Psych: Anxiety, Panic attacks Musculoskeletal: None Derm: Eczema - Past Surgical History Past Surgical History: Yes General: Cholecystectomy, Other Ortho: Arthroscopic surgery HEENT: Tonsil/Adenoidectomy - Present Medications Home Medications: Ambulatory Orders Medication Instructions Recorded Confirmed Omeprazole 40 mg PO DAILY 09/17/15 05/06/17 QUEtiapine [SEROquel] 100 mg PO QPM #14 tablet 05/06/17 Dicyclomine [Bentyl] 10 mg PO QID PRN #20 capsule 08/06/17 Methadone [Methadone Hcl] 30 mg PO 08/06/17 QUEtiapine [SEROquel] 100 mg PO QPM #20 tablet 08/06/17 cloNIDine [Catapres] 0.1 mg PO BID #15 tablet 08/06/17 ondansetron HCL [Zofran] 4 mg PO Q6H PRN #20 tablet 08/06/17 Naloxone HCl Nasal [Narcan Nasal] 4 mg NS ONCE PRN #2 kit 01/24/23 - Allergies Allergies/Adverse Reactions: Allergies Allergy/AdvReac Type Severity Reaction Status Date / Time amoxicillin Allergy Itching Verified 08/06/17 16:50 promethazine HCl * Allergy Unknown Verified 08/06/17 16:50 [From Phenergan] - Social History Does the pt smoke?: Yes Smoking Status: Current every day smoker Does the pt drink ETOH?: Yes Does the pt have substance abuse?: Yes - Immunizations Immunizations are current?: Yes - POLST Patient has POLST: No PD ED PE NORMAL - Vitals Vital signs reviewed: Yes - General General: No acute distress, Well developed/nourished, Other (Eye opening to loud verbal cues. moving limbs spontaneously. said "no" to ems attempt for iv) - HEENT HEENT: Atraumatic, PERRL, EOMI, Moist mucous membranes, Pharynx benign - Neck Neck: Supple, no meningeal sign - Cardiac Cardiac: RRR - Respiratory Respiratory: No respiratory distress, Clear bilaterally - Abdomen Abdomen: Non tender, Non distended - Derm Derm: Normal color, Warm and dry - Neuro Eye Opening: To Voice Motor: Localizes to Pain Verbal: Confused GCS Score: 12 - Psych Psych: Other (intoxicated appearing) Results - Vitals Vitals: Vital Signs - 24 hr 02/20/23 02/20/23 02/20/23 20:30 21:19 23:24 Temperature 36.3 C L 37 C 36.4 C L Heart Rate 78 71 71 Respiratory 17 16 20 Rate Blood Pressure 141/94 H 131/74 H 131/74 H O2 Saturation 98 99 100 02/21/23 02/21/23 01:38 03:59 Temperature 36.4 C L 36.5 C Heart Rate 71 72 Respiratory 20 20 Rate Blood Pressure 132/75 H 131/72 H O2 Saturation 100 100 Oxygen O2 Source Room air - EKG (time done) 0516 EKG releavant findings:: EKG personally interpreted by author of this note. Relevant findings are: Rate: Rate (enter#) (72) Rhythm: NSR [place]: Normal Intervals: Normal SD QRS: Normal Ischemia: T wave inversion (II, aVF) Compare to prior EKG: Changed from prior EKG (new twi from 04/19/2014) - Labs Labs: Laboratory Tests 02/20/23 02/20/23 02/20/23 21:09 21:14 21:14 WBC 10.2 RBC 5.12 Hgb 14.5 Hct 43.5 MCV 85.0 MCH 28.3 MCHC 33.3 RDW 12.9 Plt Count 277 MPV 9.8 Neut # (Auto) 7.2 H Lymph # (Auto) 2.4 [place] # (Auto) 0.5 Eos # (Auto) 0.1 Baso # (Auto) 0.0 Absolute Nucleated RBC 0.00 Nucleated RBC % 0.0 Sodium 139 Potassium 3.9 Chloride 108 Carbon Dioxide 22 Anion Gap 9.0 BUN 14 Creatinine 0.6 Estimated GFR (MDRD) 112 Glucose 106 H Calcium 9.2 Magnesium 2.1 Total Bilirubin 0.6 AST 19 ALT 20 Alkaline Phosphatase 60 Total Creatine Kinase 112 Total Protein 7.0 Albumin 4.0 Globulin 3.0 Albumin/Globulin Ratio 1.3 Lipase 32 TSH 0.37 Urine Color YELLOW Urine Clarity HAZY Urine pH 5.0 Ur Specific [place] >=1.030 H Urine Protein NEGATIVE Urine Glucose (UA) NEGATIVE Urine Ketones 40 H Urine Occult Blood NEGATIVE Urine Nitrite POSITIVE H Urine Bilirubin NEGATIVE Urine Urobilinogen 0.2 (NORMAL) Ur Leukocyte Esterase NEGATIVE Urine RBC 0-5 Urine WBC 0-3 Ur Squamous Epith Cells RARE Squamous Urine Bacteria Moderate H Urine Mucus Marked Strands Ur Microscopic Review INDICATED Urine Culture Comments INDICATED Urine HCG, Qual NEGATIVE Salicylates < 1.5 Urine Opiates Screen NEGATIVE Ur Oxycodone Screen NEGATIVE Urine Methadone Screen POSITIVE H Ur Propoxyphene Screen NEGATIVE Acetaminophen 0.5 Ur Barbiturates Screen NEGATIVE Ur Tricyclics Screen NEGATIVE Ur Phencyclidine Scrn NEGATIVE Ur Amphetamine Screen POSITIVE H U Methamphetamines Scrn POSITIVE H U Benzodiazepines Scrn NEGATIVE Urine Cocaine Screen NEGATIVE U Cannabinoids Screen NEGATIVE Ethyl Alcohol < 10.0 SARS-CoV-2 (PCR) 02/20/23 21:15 WBC RBC Hgb Hct MCV MCH MCHC RDW Plt Count MPV Neut # (Auto) Lymph # (Auto) [place] # (Auto) Eos # (Auto) Baso # (Auto) Absolute Nucleated RBC Nucleated RBC % Sodium Potassium Chloride Carbon Dioxide Anion Gap BUN Creatinine Estimated GFR (MDRD) Glucose Calcium Magnesium Total Bilirubin AST ALT Alkaline Phosphatase Total Creatine Kinase Total Protein Albumin Globulin Albumin/Globulin Ratio Lipase TSH Urine Color Urine Clarity Urine pH Ur Specific [place] Urine Protein Urine Glucose (UA) Urine Ketones Urine Occult Blood Urine Nitrite Urine Bilirubin Urine Urobilinogen Ur Leukocyte Esterase Urine RBC Urine WBC Ur Squamous Epith Cells Urine Bacteria Urine Mucus Ur Microscopic Review Urine Culture Comments Urine HCG, Qual Salicylates Urine Opiates Screen Ur Oxycodone Screen Urine Methadone Screen Ur Propoxyphene Screen Acetaminophen Ur Barbiturates Screen Ur Tricyclics Screen Ur Phencyclidine Scrn Ur Amphetamine Screen U Methamphetamines Scrn U Benzodiazepines Scrn Urine Cocaine Screen U Cannabinoids Screen Ethyl Alcohol SARS-CoV-2 (PCR) NOT DETECTED PD Medical Decision Making - ED course ED course: 37yF Presents to the emergency department acutely intoxicated with fentanyl. On chart review of telepsych consult from prior ED visit, patient had been making reference to plans to harm herself/others and was wielding a knife on prior visit. She also had delusional behavior. Plan to monitor and have her undergo psychiatric evaluation pending sobriety and medical clearance.CBC, abdominal panel, tox labs, hCG, COVID test ordered. u/a nitrite positive but as of 6am patient is conversant and denies dysuria. asymptomatic bacteriuria. labs otherwise benign and covid negative. patient medically cleared for psych eval. SW consult placed. Patient endorsed to daytime ED MD at 7am shift change Departure - Departure Clinical Impression: Polysubstance abuse
[2023-02-20 21:18] LABS: BASOPHILS % (AUTO) 0.4 %; EOSINOPHILS # (AUTO) 0.1 10^3/uL (0.0-0.7); EOSINOPHILS % (AUTO) 0.8 %; HCT - HEMATOCRIT 43.5 % (37.0-47.0); HGB - HEMOGLOBIN 14.5 g/dL (12.0-16.0); LYMPHOCYTES # (AUTO) 2.4 10^3/uL (1.5-3.5); LYMPHOCYTES % (AUTO) 23.3 %; MEAN CORPUSCULAR HEMOGLOBIN 28.3 pg (27.0-31.0); MEAN CORPUSCULAR HGB CONC 33.3 g/dL (32.0-36.0); MEAN PLATELET VOLUME 9.8 fL (7.9-10.8); MONOCYTES # (AUTO) 0.5 10^3/uL (0.0-1.0); MONOCYTES % (AUTO) 4.4 %; NEUTROPHILS # (AUTO) 7.2 10^3/uL (1.5-6.6); NEUTROPHILS % (AUTO) 70.9 %; PLT - PLATELET COUNT 277 10^3/uL (130-450); RED BLOOD COUNT 5.12 10^6/uL (4.20-5.40); RED CELL DISTRIBUTION WIDTH 12.9 % (12.0-15.0); WHITE BLOOD COUNT 10.2 x10^3/uL (4.8-10.8)
[2023-02-20 21:30] LABS: MUDS CUTOFF CONCENTRATIONS CUTOFF CONC BELOW:
[2023-02-20 21:32] LABS: BILIRUBIN,URINE NEGATIVE (NEGATIVE); GLUCOSE, URINE (UA) NEGATIVE (NEGATIVE); KETONES,URINE (UA) 40 mg/dL (NEGATIVE); LEUKOCYTE ESTERASE, URINE NEGATIVE (NEGATIVE); NITRITE,URINE POSITIVE (NEGATIVE); OCCULT BLOOD,URINE NEGATIVE (NEGATIVE); PROTEIN,URINE NEGATIVE (NEGATIVE); UROBILINOGEN,URINE 0.2 (NORMAL) E.U./dL (NORMAL)
[2023-02-20 21:33] LABS: CLARITY,URINE HAZY (CLEAR)
[2023-02-20 21:34] LABS: HCG UR QUAL NEGATIVE
[2023-02-20 21:35] LABS: ALBUMIN/GLOBULIN RATIO 1.3 (1.0-2.2); ALKALINE PHOSPHATASE 60 IU/L (42-121); ALT ALANINE AMINOTRANSFERASE 20 IU/L (10-60); AST ASPARTATE AMINOTRANSFERASE 19 IU/L (10-42); BILIRUBIN,TOTAL 0.6 mg/dL (0.2-1.0); BUN - BLOOD UREA NITROGEN 14 mg/dL (6-20); CALCIUM 9.2 mg/dL (8.5-10.3); CARBON DIOXIDE - CO2 22 mmol/L (21-32); CHLORIDE 108 mmol/L (101-111); CK- CREATINE KINASE 112 IU/L (22-269); GLUCOSE 106 mg/dL (70-100); LIPASE 32 U/L (22-51); MAGNESIUM 2.1 mg/dL (1.7-2.8); POTASSIUM 3.9 mmol/L (3.5-5.0); SODIUM 139 mmol/L (135-145)
[2023-02-20 21:41] LABS: BACTERIA,URINE Moderate /HPF (None Seen); MUCUS,URINE Marked Strands; RBC,URINE 0-5 /HPF (0-5); SQUAMOUS EPITHELIAL CELL,UR RARE Squamous (<= Few); WBC,URINE 0-3 /HPF (0-5)
[2023-02-20 21:43] LABS: AMPHETAMINE SCREEN,URINE POSITIVE (NEGATIVE); BENZODIAZEPINES SCREEN, URINE NEGATIVE (NEGATIVE); COCAINE SCREEN URINE NEGATIVE (NEGATIVE); METHAMPHETAMINES SCREEN, URINE POSITIVE (NEGATIVE); OPIATE SCREEN, URINE NEGATIVE (NEGATIVE); THC CANNABINOID SCREEN, URINE NEGATIVE (NEGATIVE); TRICYCLIC ANTIDEPRESSANT,URINE NEGATIVE (NEGATIVE)
[2023-02-20 21:44] LABS: BARBITURATE SCREEN,UR NEGATIVE (NEGATIVE); METHADONE SCREEN, URINE POSITIVE (NEGATIVE); OXYCODONE SCREEN, URINE NEGATIVE (NEGATIVE); PROPOXYPHENE SCREEN, URINE NEGATIVE (NEGATIVE)
[2023-02-20 21:48] LABS: THYROID STIMULATING HORMONE 0.37 uIU/mL (0.34-5.60)
[2023-02-20 22:03] LABS: CREATININE 0.6 mg/dL (0.4-1.0); GFR - MDRD 112 (>89)
[2023-02-20 23:02] LABS: ACETAMINOPHEN 0.5 ug/mL; ETOH - ETHANOL < 10.0 mg/dL
[2023-02-20 23:07] LABS: SALICYLATE < 1.5 mg/dL
[2023-02-21] MEDS ORDERED: OLANZapine ODT 5 MG TABLET TL STA (07:17)
[2023-02-21] MEDS ORDERED: ACETAMINOPHEN 325 MG TABLET PO STA (07:25)
[2023-02-21] MEDS ORDERED: HALOPERIDOL 5 MG/ML VIAL IM STA (09:55)
[2023-02-21] MEDS ORDERED: LORazepam 2 MG/ML VIAL IM STA (09:55)
--- NOTE | 2023-02-21 14:48 | ED Physician Documentation ---
ED Addendum - Addendum Addendum: 02/21/23 14:48 Seen by the DCR and has been detained to [facility], unfortunately due to distance and transport will not be leaving until tomorrow morning at 06 30. Cobras have been completed by me. She is stable for transport. Disposition: Transfer to psychiatric facility Condition: Stable Diagnosis: 1. Polysubstance abuse
[2023-02-21] MEDS ORDERED: METHADONE 5 MG TABLET PO STA (14:53)
[2023-02-21] MEDS ORDERED: LORazepam 1 MG TABLET PO STA (14:53)
[2023-02-21] MEDS ORDERED: LORazepam 1 MG TABLET PO PRN (20:00)
[2023-02-21] MEDS ORDERED: QUEtiapine 100 MG TABLET PO SCH (21:00)
[2023-02-22 05:34] VITALS: BP 135/88; O2SAT 98
== END 2023-02-22 07:01 ==
LOC: ED 20:18
DX: F19.129 Other psychoactive substance abuse with intoxication, unspecified (principal); F17.200 Nicotine dependence, unspecified, uncomplicated
CPT/HCPCS: 36415; 80053; 80306; 80307; 80320; 80329; 81001; 81025; 82550; 83690; 83735; 84443; 85025; 87077; 87086; 87181; 87635; 93005; 96372; 99285; A9270; J2060; J8499; 81003